=== PATIENT | female | born 2000 | race African-American/Black ===

== ENCOUNTER 2020-09-19 04:25 | Inpatient (IN) | payer OTHER ==
[~2020-09-19] VITALS: Ht 167.6 cm; Wt 122.5 kg
[~2020-09-19 04:25] MED LIST: CIPRO500 M1 PO; IBUPROFEN800 MG PO; NORCO 5-325 TA1 EACH PO; ONDANSETRON ODT4 MG SL; ZOFRAN4 MG PO; ZOFRAN8 MG PO
[2020-09-19 04:59] LABS: BILIRUBIN NEGATIVE (NEGATIVE); BLOOD TRACE-INTACT Ery/uL (NEGATIVE); CLARITY CLEAR (CLEAR); COLOR YELLOW (YELLOW); GLUCOSE (U) NORMAL (NORMAL); LEUKOCYTES 2+ Leu/uL (NEGATIVE); NITRITE NEGATIVE (NEGATIVE); PROTEIN TRACE (LOW) mg/dL (NEGATIVE); SPECIFIC GRAVITY 1.025 (1.001-1.030); UROBILINOGEN 0.2 mg/dL (0.2-1.0); pH 6.5 (5.0-9.0)
[2020-09-19 05:04] LABS: BACTERIA 3+; SQUAMOUS EPITHELIAL CELLS 20-50; URINARY WBC 20-50
[2020-09-19 05:05] LABS: AMPHETAMINES NEGATIVE (NEGATIVE); BARBITURATES NEGATIVE (NEGATIVE); ECSTASY (MDMA) NEGATIVE (NEGATIVE); MARIJUANA (THC) NEGATIVE (NEGATIVE); METHADONE NEGATIVE (NEGATIVE); OPIATES NEGATIVE (NEGATIVE); OXYCODONE NEGATIVE (NEGATIVE)
[2020-09-19 06:36] LABS: HCT 38.4 % (37.0-47.0); HGB 12.6 g/dl (12.5-16.0); MCH 28.4 pg (25.0-31.0); MCHC 32.8 g/dL (32.0-36.0); MCV 86.5 fL (78.0-100.0); MPV 11.2 fL (6.0-9.5); RBC 4.44 M/uL (4.20-5.40); RDW 14.7 % (11.5-14.0); WBC 12.8 K/uL (4.0-10.5)
[2020-09-19 06:57] LABS: ALBUMIN 2.5 g/dL (3.4-5.0); BILIRUBIN - TOTAL 0.3 mg/dL (0.2-1.0); BUN/CREAT RATIO (CALC) 10.3 RATIO; CREATININE 0.68 mg/dL (0.51-0.95); GLOBULIN (CALCULATION) 4.3 g/dL; POTASSIUM 3.8 mmol/L (3.5-5.1); TOTAL PROTEIN 6.8 g/dL (6.4-8.2)
[2020-09-20 05:47] LABS: HCT 34.7 % (37.0-47.0); HGB 11.5 g/dl (12.5-16.0); MCH 28.5 pg (25.0-31.0); MCHC 33.1 g/dL (32.0-36.0); MCV 85.9 fL (78.0-100.0); MPV 11.6 fL (6.0-9.5); RBC 4.04 M/uL (4.20-5.40); RDW 14.8 % (11.5-14.0); WBC 19.9 K/uL (4.0-10.5)
[2020-09-22] MEDS ORDERED: FIORICET1 EACH PO (15:38)
[2020-09-23] MEDS ORDERED: PRE NATAL VIT PO (09:06)
== END 2020-09-21 18:40 | disposition home or self-care (01) | DRG 807 ==
LOC: FOB 04:25 → FOD 04:25 → FOB 06:07
PROVIDERS: ADMIT Obstetrics & Gynecology
PROC: 10E0XZZ Delivery of Products of Conception, External Approach (ICD-10-PCS; principal; 2020-09-19)
PROC: 0KQM0ZZ Repair Perineum Muscle, Open Approach (ICD-10-PCS; 2020-09-19)
PROC: 10H07YZ Insertion of Other Device into Products of Conception, Via Natural or Artificial Opening (ICD-10-PCS; 2020-09-19)
PROC: 10907ZC Drainage of Amniotic Fluid, Therapeutic from Products of Conception, Via Natural or Artificial Opening (ICD-10-PCS; 2020-09-19)
PROC: 0UQMXZZ Repair Vulva, External Approach (ICD-10-PCS; 2020-09-19)
PROC: 3E0P7VZ Introduction of Hormone into Female Reproductive, Via Natural or Artificial Opening (ICD-10-PCS; 2020-09-19)
DX: O24.424 Gestational diabetes mellitus in childbirth, insulin controlled (principal); Z37.0 Single live birth; Z3A.38 38 weeks gestation of pregnancy; Z20.822 Contact with and (suspected) exposure to COVID-19; O99.214 Obesity complicating childbirth; E66.9 Obesity, unspecified; O70.1 Second degree perineal laceration during delivery; O71.82 Other specified trauma to perineum and vulva; O69.81X0 Labor and delivery complicated by cord around neck, without compression, not applicable or unspecified; Z90.49 Acquired absence of other specified parts of digestive tract
CPT/HCPCS: 36415; 80053; 80305; 81001; 82009; 82947; 82962; 84112; J0595; J2300; J2405; J3010; J7120; J7121; U0002

== ENCOUNTER 2020-09-22 13:16 | Emergency (ER) | payer OTHER ==
[2020-09-22] MEDS ORDERED: FIORICET1 EACH PO (15:38)
[2020-09-23] MEDS ORDERED: PRE NATAL VIT PO (09:06)
== END 2020-09-22 16:00 | disposition home or self-care (01) ==
LOC: FER 13:16
DX: G97.1 Other reaction to spinal and lumbar puncture (principal)
CPT/HCPCS: 99283

== ENCOUNTER → 2020-09-23 | Day surgery (SDC) | payer OTHER ==
[~2020-09-23] VITALS: Ht 167.6 cm; Wt 115.7 kg
[~2020-09-23] MED LIST changes: +FIORICET1 EACH PO; +PRE NATAL VIT PO
== END | disposition home or self-care (01) ==
LOC: FOB 09-20 12:16 → FSDC 08:44 → FOB 08:44 → FSDC 08:57 → FOB 09:00 → EDSTATUS 09:00 → FAS 09:11
DX: G97.1 Other reaction to spinal and lumbar puncture (principal); Z79.891 Long term (current) use of opiate analgesic; Z79.899 Other long term (current) drug therapy
CPT/HCPCS: 76000; Q9967

== ENCOUNTER 2021-04-03 21:41 | Emergency (ER) | payer OTHER ==
[2021-04-03 22:15] LABS: BASOPHIL 0.4 % (0-2); EOSINOPHIL 1.9 % (0-5); HCT 43.5 % (37.0-47.0); HGB 14.7 g/dl (12.5-16.0); LYMPHOCYTE 26.5 % (15-48); MCH 29.8 pg (25.0-31.0); MCHC 33.8 g/dL (32.0-36.0); MCV 88.1 fL (78.0-100.0); MONOCYTE 7.8 % (0-12); MPV 11.9 fL (6.0-9.5); NEUTROPHIL 63.1 % (41-80); NRBC 0; PLT 212 K/uL (150-400); RBC 4.94 M/uL (4.20-5.40); RDW 12.8 % (11.5-14.0); WBC 9.8 K/uL (4.0-10.5)
[2021-04-03 22:26] LABS: INR 1.1 (0.9-1.2); PROTHROMBIN TIME 13.6 SECONDS (11.8-13.4)
[2021-04-03 22:27] LABS: PTT 29.8 SECONDS (24.4-34.7)
[2021-04-03 22:36] LABS: ALBUMIN 3.5 g/dL (3.4-5.0); ALKALINE PHOSHATASE 99 U/L (46-116); ALT 27 U/L (14-59); AST 14 U/L (15-37); BILIRUBIN - TOTAL 0.3 mg/dL (0.2-1.0); BUN 16 mg/dL (7-18); BUN/CREAT RATIO (CALC) 17.4 RATIO; CHLORIDE 103 mmol/L (98-107); CO2 (BICARBONATE) 27 mmol/L (21-32); CREATININE 0.92 mg/dL (0.51-0.95); GLOBULIN (CALCULATION) 3.8 g/dL; GLUCOSE 107 mg/dL (74-106); POTASSIUM 3.6 mmol/L (3.5-5.1); TOTAL PROTEIN 7.3 g/dL (6.4-8.2)
== END 2021-04-04 00:13 | disposition left against medical advice (07) ==
LOC: FER 21:41
PROVIDERS: Emergency Medicine
DX: R07.89 Other chest pain (principal); M79.601 Pain in right arm; Z53.8 Procedure and treatment not carried out for other reasons
CPT/HCPCS: 36415; 80053; 84484; 85025; 85610; 85730; 93005; 99281

== ENCOUNTER 2021-10-07 14:21 | Emergency (ER) | payer OTHER ==
[2021-10-07 15:22] LABS: BASOPHIL 0.1 % (0-2); EOSINOPHIL 0.1 % (0-5); HCT 45.3 % (37.0-47.0); HGB 15.6 g/dl (12.5-16.0); LYMPHOCYTE 9.5 % (15-48); MCH 30.2 pg (25.0-31.0); MCHC 34.4 g/dL (32.0-36.0); MCV 87.8 fL (78.0-100.0); MONOCYTE 3.8 % (0-12); MPV 11.9 fL (6.0-9.5); NEUTROPHIL 86.3 % (41-80); NRBC 0; PLT 189 K/uL (150-400); RBC 5.16 M/uL (4.20-5.40); RDW 12.2 % (11.5-14.0); WBC 9.7 K/uL (4.0-10.5)
[2021-10-07 15:33] LABS: BILIRUBIN NEGATIVE (NEGATIVE); BLOOD NEGATIVE Ery/uL (NEGATIVE); CLARITY CLEAR (CLEAR); COLOR YELLOW (YELLOW); GLUCOSE (U) NORMAL (NORMAL); LEUKOCYTES NEGATIVE Leu/uL (NEGATIVE); NITRITE NEGATIVE (NEGATIVE); PROTEIN NEGATIVE (NEGATIVE); SPECIFIC GRAVITY >=1.030 (1.001-1.030); UROBILINOGEN 0.2 mg/dL (0.2-1.0)
[2021-10-07 15:34] LABS: ALBUMIN 3.5 g/dL (3.4-5.0); BILIRUBIN - TOTAL 0.6 mg/dL (0.2-1.0); BUN/CREAT RATIO (CALC) 24.2 RATIO; CREATININE 0.66 mg/dL (0.51-0.95); GLOBULIN (CALCULATION) 3.5 g/dL; POTASSIUM 4.1 mmol/L (3.5-5.1)
[2021-10-07] MEDS ORDERED: DICYCLOMINE HCL20 MG PO (19:18)
[2021-10-07] MEDS ORDERED: ONDANSETRON ODT4 MG PO (19:18)
== END 2021-10-07 19:38 | disposition home or self-care (01) ==
LOC: FER 14:21
PROVIDERS: Physician Assistant
DX: R10.2 Pelvic and perineal pain (principal); R11.2 Nausea with vomiting, unspecified; Z28.310 Unvaccinated for COVID-19
CPT/HCPCS: 36415; 80053; 81003; 82150; 83690; 85025; 93005; 96372; J0500; J2405; J7030; Q9967